=== PATIENT | male | born 1950 | race Caucasian/White ===

== ENCOUNTER 2019-08-27 09:13 | Emergency (ER) | payer MEDICARE, OTHER ==
[2019-08-27 09:58] LABS: BILIRUBIN,URINE NEGATIVE (NEGATIVE); GLUCOSE, URINE (UA) NEGATIVE (NEGATIVE); KETONES,URINE (UA) 15 mg/dL (NEGATIVE); LEUKOCYTE ESTERASE, URINE MODERATE (NEGATIVE); NITRITE,URINE POSITIVE (NEGATIVE); OCCULT BLOOD,URINE LARGE (NEGATIVE); PH,URINE 5.5 PH (5.0-7.5); PROTEIN,URINE 100 mg/dL (NEGATIVE); UROBILINOGEN,URINE 0.2 (NORMAL) E.U./dL (NORMAL)
[2019-08-27 10:05] LABS: CLARITY,URINE HAZY (CLEAR)
[2019-08-27 10:11] LABS: BACTERIA,URINE Few /HPF (None Seen); SQUAMOUS EPITHELIAL CELL,UR RARE Squamous (<= Few)
[2019-08-27 10:12] LABS: BASOPHILS # (AUTO) 0.1 10^3/uL (0.0-0.1); BASOPHILS % (AUTO) 0.4 %; EOSINOPHILS # (AUTO) 0.2 10^3/uL (0.0-0.7); EOSINOPHILS % (AUTO) 1.1 %; HGB - HEMOGLOBIN 15.1 g/dL (14.0-18.0); LYMPHOCYTES % (AUTO) 6.2 %; MEAN CORPUSCULAR HEMOGLOBIN 32.5 pg (27.0-31.0); MEAN CORPUSCULAR HGB CONC 34.2 g/dL (32.0-36.0); MEAN CORPUSCULAR VOLUME 94.8 fL (80.0-94.0); MONOCYTES # (AUTO) 1.5 10^3/uL (0.0-1.0); MONOCYTES % (AUTO) 9.2 %; NEUTROPHILS # (AUTO) 13.5 10^3/uL (1.5-6.6); NEUTROPHILS % (AUTO) 81.9 %; PLT - PLATELET COUNT 137 10^3/uL (130-450); RED BLOOD COUNT 4.65 10^6/uL (4.70-6.10); WHITE BLOOD COUNT 16.5 x10^3/uL (4.8-10.8)
[2019-08-27 10:31] LABS: ALBUMIN 4.4 g/dL (3.2-5.5); ALBUMIN/GLOBULIN RATIO 1.6 (1.0-2.2); CALCIUM 9.2 mg/dL (8.5-10.3); CREATININE 1.4 mg/dL (0.6-1.2); TOTAL PROTEIN 7.2 g/dL (6.7-8.2)
[2019-08-27] MEDS ORDERED: ONDANSETRON 4 MG/2 ML VIAL IVP STA (11:21)
[2019-08-27] MEDS ORDERED: SODIUM CHLORIDE 0.9% 1,000 ML IV ONE (11:21)
[2019-08-27] MEDS ORDERED: PHENAZOPYRIDINE 100 MG TABLET PO STA (11:21)
[2019-08-27] MEDS ORDERED: ACETAMINOPHEN 1,000 MG/100 ML 100 ML IV STA ×2 (11:21→13:26)
[2019-08-27] MEDS ORDERED: cefTRIAXone 1 GM VIAL IVP STA (11:21)
[2019-08-27 13:02] VITALS: BP 135/66
--- NOTE | 2019-08-27 13:07 | ED Physician Documentation ---
PD HPI MALE - Stated complaint Stated Complaint: CHILLS/FEVER - Chief complaint Chief Complaint: Abd Pain - History obtained from History obtained from: Patient - History of Present Illness Timing - onset: How many days ago (2-3) Timing - duration: Days (2-3) Timing - details: Abrupt onset, Still present Associated symptoms: Dysuria, Urinary frequency, Back pain (today). 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 Has not felt improvement yet. Fever, dysuria and frequency continue.) Review of Systems Constitutional: reports: Fever, Chills, Myalgias Nose: denies: Rhinorrhea / runny nose, Congestion Throat: denies: Sore throat Respiratory: denies: Cough GI: reports: Abdominal Pain (suprapubic area), Nausea. denies: Vomiting, Diarrhea : reports: Dysuria, Frequency. denies: Hematuria, Discharge Skin: denies: Rash PD PAST MEDICAL HISTORY - Past Medical History Past Medical History: Yes Cardiovascular: None Endocrine/Autoimmune: None : None Other Past Medical History: Prostatitis - Past Surgical History Past Surgical History: No - Present Medications Home Medications: Ambulatory Orders Medication Instructions Recorded Confirmed Sulfamethox/Trimeth 800/160 1 each PO BID #40 tablet 08/27/19 [Bactrim Ds 800/160] - Allergies Allergies/Adverse Reactions: Allergies Allergy/AdvReac Type Severity Reaction Status Date / Time No Known Drug Allergies Allergy Verified 08/27/19 09:19 - Social History Does the pt smoke?: No Smoking Status: Never smoker Does the pt drink ETOH?: Yes ETOH Use: Wine Does the pt have substance abuse?: No - Immunizations Immunizations: TDAP >10years/unknown PD ED PE NORMAL - Vitals Vital signs reviewed: Yes - General General: Alert and oriented X 3, Well developed/nourished, Other (appears uncomfortable) - Abdomen Abdomen: Normal bowel sounds, Soft, Non distended, No organomegaly, Other (some tneder without guarding in suprapubic area. Mild CVA tenderness bilaterally. ) - Male Male : Deferred - Rectal Rectal: Deferred - Back Back: No CVA TTP - Derm Derm: Normal color Results - Vitals Vitals: Vital Signs - 24 hr 08/27/19 08/27/19 08/27/19 09:19 11:24 13:02 Temperature 38.3 C H 37.7 C H 39.5 C H Heart Rate 116 H 91 99 Respiratory 18 16 20 Rate Blood Pressure 127/72 136/73 H 135/66 H O2 Saturation 98 97 96 Oxygen O2 Source Room air - Labs Labs: Laboratory Tests 08/27/19 08/27/19 08/27/19 09:40 10:07 10:07 WBC 16.5 H RBC 4.65 L Hgb 15.1 Hct 44.1 MCV 94.8 H MCH 32.5 H MCHC 34.2 RDW 12.0 Plt Count 137 MPV 11.0 Neut # (Auto) 13.5 H Lymph # (Auto) 1.0 L [place] # (Auto) 1.5 H Eos # (Auto) 0.2 Baso # (Auto) 0.1 Absolute Nucleated RBC 0.00 Nucleated RBC % 0.0 Sodium 134 L Potassium 4.1 Chloride 101 Carbon Dioxide 21 Anion Gap 12.0 BUN 17 Creatinine 1.4 H Estimated GFR (MDRD) 50 L Glucose 140 H Lactic Acid Calcium 9.2 Total Bilirubin 2.0 H AST 27 ALT 26 Alkaline Phosphatase 44 Total Protein 7.2 Albumin 4.4 Globulin 2.8 Albumin/Globulin Ratio 1.6 Lipase 34 Prostate Specific Ag Urine Color YELLOW Urine Clarity HAZY Urine pH 5.5 Ur Specific [place] >=1.030 H Urine Protein 100 H Urine Glucose (UA) NEGATIVE Urine Ketones 15 H Urine Occult Blood LARGE H Urine Nitrite POSITIVE H Urine Bilirubin NEGATIVE Urine Urobilinogen 0.2 (NORMAL) Ur Leukocyte Esterase MODERATE H Urine RBC 6-10 H Urine WBC >25 H Ur Squamous Epith Cells RARE Squamous Urine Bacteria Few Ur Microscopic Review INDICATED Urine Culture Comments INDICATED 08/27/19 08/27/19 11:23 11:23 WBC RBC Hgb Hct MCV MCH MCHC RDW Plt Count MPV Neut # (Auto) Lymph # (Auto) [place] # (Auto) Eos # (Auto) Baso # (Auto) Absolute Nucleated RBC Nucleated RBC % Sodium Potassium Chloride Carbon Dioxide Anion Gap BUN Creatinine Estimated GFR (MDRD) Glucose Lactic Acid 1.2 Calcium Total Bilirubin AST ALT Alkaline Phosphatase Total Protein Albumin Globulin Albumin/Globulin Ratio Lipase Prostate Specific Ag 34.480 H Urine Color Urine Clarity Urine pH Ur Specific [place] Urine Protein Urine Glucose (UA) Urine Ketones Urine Occult Blood Urine Nitrite Urine Bilirubin Urine Urobilinogen Ur Leukocyte Esterase Urine RBC Urine WBC Ur Squamous Epith Cells Urine Bacteria Ur Microscopic Review Urine Culture Comments PD MEDICAL DECISION MAKING - ED course Complexity details: considered differential (does sound like UTI or prostatitis. He declines Pyridium and initially Tylenol, but then decides on the Tylenol. ), d/w patient Departure - Departure Disposition: 01 Home, Self Care Clinical Impression: Acute prostatitis Condition: Stable Record reviewed to determine appropriate education?: Yes Instructions: ED Prostatitis Prescriptions: Sulfamethox/Trimeth 800/160 [Bactrim Ds 800/160] 1 each PO BID #40 tablet Comments: Bactrim twice daily for 3 weeks. Stay well-hydrated. Tylenol if needed for fevers and pains. You can use phenazopyridine if needed for urinary discomfort. I would anticipate improvement over the next few days with the antibiotics. The culture will result in a couple of days and will call you if we need to modify the antibiotics. Return if worsening. Discharge Date/Time: 08/27/19 13:49
[2019-08-27] MEDS ORDERED: ACETAMINOPHEN 325 MG TABLET PO STA (13:34)
== END 2019-08-27 13:49 | disposition home or self-care (01) ==
LOC: ED 09:13
DX: N41.0 Acute prostatitis (principal)
CPT/HCPCS: 36415; 80053; 81001; 83605; 83690; 84153; 85025; 87086; 87181; 96361; 96374; 99283; 99284; A9270; 81003

== ENCOUNTER 2019-10-10 11:44 | Outpatient (CLI) | payer MEDICARE, OTHER | END 2019-10-10 11:45 | disposition home or self-care (01) | LOC: COV 11:44 | PROVIDERS: ATTEND Family Medicine | DX: R05 Cough (principal); R50.9 Fever, unspecified | CPT/HCPCS: 81599; U0002 ==

== ENCOUNTER 2021-04-22 16:47 | Outpatient (CLI) | payer MEDICARE, OTHER | END 2021-04-22 16:48 | disposition home or self-care (01) | LOC: COV 16:47 | PROVIDERS: ATTEND Family Medicine | DX: Z01.812 Encounter for preprocedural laboratory examination (principal); Z86.19 Personal history of other infectious and parasitic diseases; Z20.822 Contact with and (suspected) exposure to COVID-19 ==

== ENCOUNTER 2021-04-24 13:39 | Outpatient (CLI) | payer MEDICARE, OTHER ==
--- NOTE | 2021-04-24 16:08 | XRAY Report ---
PROCEDURE: Chest 2 View X-Ray INDICATIONS: PNEUMONIA TECHNIQUE: 2 view(s) of the chest. COMPARISON: None. FINDINGS: Surgical changes and devices: None. Lungs and pleura: No pleural effusions or pneumothorax. Lungs are clear. Mediastinum: Mediastinal contours are normal. Heart size is normal. Bones and chest wall: No suspicious bony abnormalities. Soft tissues appear unremarkable. IMPRESSION: No acute cardiopulmonary disease process. Reviewed by: Maryam Barnett MD, PhD on 04/24/2021 4:07 PM PDT Approved by: Maryam Barnett MD, PhD on 04/24/2021 4:07 PM PDT Station ID: [id number]
== END 2021-04-24 13:40 | disposition home or self-care (01) ==
LOC: DI 13:39
PROVIDERS: ATTEND Family Medicine
DX: J18.9 Pneumonia, unspecified organism (principal)

== ENCOUNTER 2021-07-18 17:49 | Emergency (ER) | payer MEDICARE, OTHER ==
--- NOTE | 2021-07-18 18:17 | ED Physician Documentation ---
PD HPI DYSPNEA - Stated complaint Stated Complaint: SOA,FEVER - Chief complaint Chief Complaint: Resp - History obtained from History obtained from: Patient - Additional information Additional information: Healthy 70-year-old gentleman has had trouble with reactive airways disease since being exposed to wood smoke a few months ago and had an increasing dry cough a couple of weeks ago and finished a Z-Yordan last week. Now more acutely over the last 2 days have developed productive cough with feeling of stuck phlegm in the left side of the chest with a low-grade fever and shortness of breath. He has been taking albuterol at home. Declines albuterol here and declines anything for the cough. He has not been vaccinated against Covid but took a home test which was negative. Review of Systems Ten Systems: 10 systems reviewed and negative Constitutional: reports: Fever, Fatigue Nose: reports: Rhinorrhea / runny nose Throat: reports: Sore throat Cardiac: denies: Chest pain / pressure, Palpitations Respiratory: reports: Dyspnea, Cough PD PAST MEDICAL HISTORY - Past Medical History Cardiovascular: None Endocrine/Autoimmune: None : None - Past Surgical History Past Surgical History: No - Present Medications Home Medications: Ambulatory Orders Medication Instructions Recorded Confirmed Sulfamethox/Trimeth 800/160 1 each PO BID #40 tablet 08/27/19 [Bactrim Ds 800/160] predniSONE [Deltasone] 20 mg PO [id number] #21 tab 07/18/21 - Allergies Allergies/Adverse Reactions: Allergies Allergy/AdvReac Type Severity Reaction Status Date / Time No Known Drug Allergies Allergy Verified 07/18/21 17:58 - Social History Does the pt smoke?: No Smoking Status: Never smoker Does the pt drink ETOH?: Yes Does the pt have substance abuse?: No - Immunizations Immunizations: TDAP >10years/unknown PD ED PE NORMAL - Vitals Vital signs reviewed: Yes - General General: Alert and oriented X 3, Other (Quite frequent bronchitic coughing, nonlabored breathing when he is not coughing) - Cardiac Cardiac: RRR, No murmur - Respiratory Respiratory: No respiratory distress, Other (Wheezy and rhonchorous throughout and diminished at the left base) - Abdomen Abdomen: Normal bowel sounds, Soft, Non tender - Back Back: No CVA TTP, No spinal TTP - Derm Derm: Normal color, Warm and dry - Extremities Extremities: No edema, No calf tenderness / cord - Neuro Neuro: Alert and oriented X 3, Normal speech Results - Vitals Vitals: Vital Signs - 24 hr 07/18/21 07/18/21 17:52 19:00 Temperature 36.5 C Heart Rate 90 78 Respiratory 18 18 Rate Blood Pressure 153/93 H O2 Saturation 97 Oxygen O2 Source Room air - Labs Labs: Laboratory Tests 07/18/21 07/18/21 19:05 19:05 WBC 7.3 RBC 4.60 L Hgb 14.9 Hct 43.7 MCV 95.0 H MCH 32.4 H MCHC 34.1 RDW 12.3 Plt Count 180 MPV 10.5 Neut # (Auto) 3.8 Lymph # (Auto) 2.1 [place] # (Auto) 0.8 Eos # (Auto) 0.7 Baso # (Auto) 0.1 Absolute Nucleated RBC 0.00 Nucleated RBC % 0.0 Sodium 138 Potassium 3.8 Chloride 103 Carbon Dioxide 26 Anion Gap 9.0 BUN 21 H Creatinine 1.0 Estimated GFR (MDRD) 74 L Glucose 107 H Calcium 9.4 PD MEDICAL DECISION MAKING - ED course ED course: 70-year-old gentleman with what sounds like wheezy bronchitis, chest x-ray is clear. Covid test pending but unlikely given negative home Covid testing and lack of lymphopenia. Blood work is relatively unremarkable. He declined a trial of antibiotics which is not unreasonable given the lack of findings of bacterial infection. Departure - Departure Disposition: 01 Home, Self Care Clinical Impression: Bronchitis Condition: Good Record reviewed to determine appropriate education?: Yes Instructions: ED Bronchitis Asthmatic Prescriptions: predniSONE [Deltasone] 20 mg PO [id number] #21 tab Comments: You were seen today for wheezy bronchitis, as discussed your chest x-ray is clear. You can try the prednisone taper and see if that helps. Return for new or worsening symptoms. You have a Covid test pending. You need to self quarantine until the result is done and negative. Do not leave your house. Do not get near anybody. The results should be done in 48 to 72 hours. We will call with a positive result, the fastest way to get a negative result for confirmation though is to go to the hospital website at [email or web address], click on the my [facility] tab and sign up for the patient portal. If any friends or family get sick and would like to have a Covid test done, but do not have signs or symptoms that would necessitate being hospitalized, there are multiple local options for Covid testing. [facility] keeps an updated list of testing and vaccination options at: [email or web address].
--- NOTE | 2021-07-18 18:38 | XRAY Report ---
PROCEDURE: Chest 1 View X-Ray INDICATIONS: Cough TECHNIQUE: One view of the chest was acquired. COMPARISON: 04/24/2021 chest radiographs FINDINGS: Surgical changes and devices: None. Lungs and pleura: No pleural effusions or pneumothorax. Lungs are clear. Mediastinum: Mediastinal contours appear normal. Heart size is normal. Bones and chest wall: No suspicious bony lesions. Overlying soft tissues appear unremarkable. IMPRESSION: No acute cardiopulmonary process demonstrated radiographically. Reviewed by: Jameson Mendoza MD on 07/18/2021 6:37 PM PST Approved by: Jameson Mendoza MD on 07/18/2021 6:37 PM [facility] Station ID: [id number]
[2021-07-18] MEDS ORDERED: ALBUTEROL 1 PUFF INH STA (18:44)
[2021-07-18 19:10] LABS: BASOPHILS # (AUTO) 0.1 10^3/uL (0.0-0.1); EOSINOPHILS # (AUTO) 0.7 10^3/uL (0.0-0.7); EOSINOPHILS % (AUTO) 9.1 %; HCT - HEMATOCRIT 43.7 % (42.0-52.0); HGB - HEMOGLOBIN 14.9 g/dL (14.0-18.0); LYMPHOCYTES # (AUTO) 2.1 10^3/uL (1.5-3.5); LYMPHOCYTES % (AUTO) 27.9 %; MEAN CORPUSCULAR HEMOGLOBIN 32.4 pg (27.0-31.0); MEAN CORPUSCULAR HGB CONC 34.1 g/dL (32.0-36.0); MEAN PLATELET VOLUME 10.5 fL (7.4-11.4); MONOCYTES # (AUTO) 0.8 10^3/uL (0.0-1.0); MONOCYTES % (AUTO) 10.6 %; NEUTROPHILS # (AUTO) 3.8 10^3/uL (1.5-6.6); NEUTROPHILS % (AUTO) 51.1 %; PLT - PLATELET COUNT 180 10^3/uL (130-450); RED CELL DISTRIBUTION WIDTH 12.3 % (12.0-15.0); WHITE BLOOD COUNT 7.3 x10^3/uL (4.8-10.8)
[2021-07-18 19:19] LABS: CALCIUM 9.4 mg/dL (8.5-10.3); POTASSIUM 3.8 mmol/L (3.5-5.0)
[2021-07-18 19:49] VITALS: BP 136/99
== END 2021-07-18 19:49 | disposition home or self-care (01) ==
LOC: ED 17:49
DX: J40 Bronchitis, not specified as acute or chronic (principal); Z20.822 Contact with and (suspected) exposure to COVID-19
CPT/HCPCS: 36415; 71045; 80048; 85025; 94640; 94664; 99283; 99284; U0004

== ENCOUNTER 2021-07-24 08:00 | Outpatient (CLI) | payer MEDICARE, OTHER ==
[2021-07-24 20:10] LABS: BILIRUBIN,URINE NEGATIVE (NEGATIVE); GLUCOSE, URINE (UA) NEGATIVE (NEGATIVE); KETONES,URINE (UA) NEGATIVE (NEGATIVE); LEUKOCYTE ESTERASE, URINE MODERATE (NEGATIVE); NITRITE,URINE POSITIVE (NEGATIVE); OCCULT BLOOD,URINE LARGE (NEGATIVE); PROTEIN,URINE 100 mg/dL (NEGATIVE); UROBILINOGEN,URINE 0.2 (NORMAL) E.U./dL (NORMAL)
[2021-07-24 20:31] LABS: CLARITY,URINE CLOUDY (CLEAR)
[2021-07-24 20:37] LABS: BACTERIA,URINE Few /HPF (None Seen); RBC,URINE TNTC /HPF (0-5); SQUAMOUS EPITHELIAL CELL,UR NONE SEEN (<= Few); WBC,URINE >25 /HPF (0-3)
== END 2021-07-24 23:59 ==
LOC: LAB.S 08:00
PROVIDERS: ATTEND Physician Assistant Medical
DX: R30.0 Dysuria (principal); R31.0 Gross hematuria
CPT/HCPCS: 81001; 87086; 87181

== ENCOUNTER 2021-08-16 08:34 | Outpatient (CLI) | payer MEDICARE, OTHER | END 2021-08-16 08:35 | disposition EMS.NT | LOC: EMS 08:34 | DX: I48.91 Unspecified atrial fibrillation (principal) ==

== ENCOUNTER 2021-08-16 10:40 | Outpatient (CLI) | payer MEDICARE, OTHER | END 2021-08-16 10:41 | disposition critical access hospital (66) | LOC: EMS 10:40 | DX: R07.9 Chest pain, unspecified (principal) | CPT/HCPCS: A0425; A0429 ==

== ENCOUNTER 2021-08-16 11:23 | Emergency (ER) | payer MEDICARE, OTHER ==
--- NOTE | 2021-08-16 12:12 | XRAY Report ---
PROCEDURE: Chest 1 View X-Ray INDICATIONS: Chest pain TECHNIQUE: One view of the chest was acquired. COMPARISON: 07/18/2021. FINDINGS: Surgical changes and devices: None. Lungs and pleura: No pleural effusions or pneumothorax. Patchy opacities in the lung bases bilateral ly. Mediastinum: Mediastinal contours appear normal. Heart size is normal. Bones and chest wall: No suspicious bony lesions. Overlying soft tissues appear unremarkable. IMPRESSION: Small patchy opacities in the lung bases bilaterally, right greater than left which could represent a telectasis or pneumonia. Reviewed by: Maryam Barnett MD, PhD on 08/16/2021 11:10 AM [facility] Approved by: Maryam Barnett MD, PhD on 08/16/2021 11:10 AM [facility] Station ID: [id number]
--- NOTE | 2021-08-16 12:19 | ED Physician Documentation ---
History of Present Illness - Stated complaint Stated Complaint: AFIB/C+ - Chief complaint Chief Complaint: Cardiac - Additonal information Additional information: 70-year-old male presents emergency department for evaluation of palpitations that he believes is new onset atrial fibrillation. The patient tested positive for COVID about 10 days ago. Intermittently through the last week he has been having fevers but reports that he is steadily improved, though last night had a fever of 102. Very mild non productive cough. He was feeling improved until this morning when he developed the palpitations at rest. He is denying any chest pain or shortness of air. Does not feel dizzy or lightheaded. No previous history of known A. fib, coronary artery disease, heart attack or strokes. 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 Patient is not yet vaccinated for COVID-19 due to personal choice. He denies any pertinent past medical history, no history of diabetes tobacco use smoking or pulmonary disorders. He has tried vagal maneuvers at home without success. He arrives here appearing very well room air saturations at 99% noted atrial fib with a rate in the 70s. Review of Systems Constitutional: reports: Fever, Myalgias, Fatigue. denies: Chills Eyes: reports: Reviewed and negative Ears: reports: Reviewed and negative Nose: reports: Reviewed and negative Throat: reports: Reviewed and negative Cardiac: reports: Palpitations. denies: Chest pain / pressure, Pedal edema, Calf pain Respiratory: denies: Dyspnea, Cough GI: denies: Abdominal Pain, Nausea, Vomiting : reports: Reviewed and negative Skin: reports: Reviewed and negative PD PAST MEDICAL HISTORY - Past Medical History Cardiovascular: Atrial fibrillation Endocrine/Autoimmune: None : None - Past Surgical History Past Surgical History: No - Present Medications Home Medications: Ambulatory Orders Medication Instructions Recorded Confirmed Sulfamethox/Trimeth 800/160 1 each PO BID #40 tablet 08/27/19 [Bactrim Ds 800/160] predniSONE [Deltasone] 20 mg PO [id number] #21 tab 07/18/21 Amox/Clav 875/125 [Augmentin] 1 each PO Q12H #14 tablet 08/16/21 Azithromycin [Zithromax] 0 mg PO DAILY #6 tablet 08/16/21 - Allergies Allergies/Adverse Reactions: Allergies Allergy/AdvReac Type Severity Reaction Status Date / Time No Known Drug Allergies Allergy Verified 08/16/21 11:45 - Social History Does the pt smoke?: No Smoking Status: Never smoker Does the pt drink ETOH?: Yes Does the pt have substance abuse?: No - Immunizations Immunizations: TDAP >10years/unknown PD ED PE NORMAL - General General: Alert and oriented X 3, No acute distress, Well developed/nourished - HEENT HEENT: Atraumatic, Moist mucous membranes, Pharynx benign - Neck Neck: Supple, no meningeal sign - Cardiac Cardiac: No murmur. No: RRR (irregular) - Respiratory Respiratory: No respiratory distress, Clear bilaterally - Abdomen Abdomen: Normal bowel sounds, Soft - Back Back: No CVA TTP, No spinal TTP - Derm Derm: Normal color, Warm and dry, No rash - Neuro Neuro: Alert and oriented X 3, field spec 2-12 intact Eye Opening: Spontaneous Motor: Obeys Commands Verbal: Oriented GCS Score: 15 Results - Vitals Vitals: Vital Signs - 24 hr 08/16/21 08/16/21 11:37 12:15 Temperature 36.6 C Heart Rate 86 85 Respiratory 12 14 Rate Blood Pressure 113/73 131/79 H O2 Saturation 98 98 Oxygen O2 Source Room air - Labs Labs: Laboratory Tests 08/16/21 08/16/21 08/16/21 12:06 12:06 12:06 WBC 2.9 L RBC 4.70 Hgb 15.0 Hct 43.4 MCV 92.3 MCH 31.9 H MCHC 34.6 RDW 11.9 L Plt Count 106 L MPV 10.9 Manual Slide Review Indicated Sodium 134 L Potassium 3.6 Chloride 98 L Carbon Dioxide 25 Anion Gap 11.0 BUN 14 Creatinine 0.9 Estimated GFR (MDRD) 83 L Glucose 106 H Calcium 8.7 Total Bilirubin 0.2 AST 67 H ALT 44 Alkaline Phosphatase 55 Troponin I High Sens 8.9 B-Natriuretic Peptide Total Protein 6.4 L Albumin 3.8 Globulin 2.6 Albumin/Globulin Ratio 1.5 Lipase 91 H 08/16/21 12:06 WBC RBC Hgb Hct MCV MCH MCHC RDW Plt Count MPV Manual Slide Review Sodium Potassium Chloride Carbon Dioxide Anion Gap BUN Creatinine Estimated GFR (MDRD) Glucose Calcium Total Bilirubin AST ALT Alkaline Phosphatase Troponin I High Sens B-Natriuretic Peptide 24 Total Protein Albumin Globulin Albumin/Globulin Ratio Lipase - Rads (name of study) CXR Radiology: Final report received (Small patchy opacities in the left lung bases bilaterally right greater than left which could represent atelectasis or pneumonia) PD MEDICAL DECISION MAKING - ED course Complexity details: reviewed results, re-evaluated patient, considered differential, d/w patient ED course: 70-year-old male who denies any pertinent past medical history with the exception of recently diagnosed reactive airway disease secondary to and all of oil allergy presents the emergency department for recurrent fevers over the last week as well as new onset palpitations that began this AM. He was diagnosed with COVID about 1 week ago. Last temperature 102 yesterday evening. He denies however that he has a productive cough. On presentation he is noted to be in a rate controlled atrial fib. Rate is about 80. However the EKG is nonischemic. Patient denies chest pain or shortness of air. His normotensive without hypoxia. Screening labs do show a leukopenia which is consistent with a history of COVID infection. High-sensitivity troponin and BNP are not elevated. Chest x-ray suggest a subtle pneumonia in both of his lower lung bases. This pneumonia is likely the cause of the new onset atrial fibrillation. His [id number] score is 0. Making him low risk for stroke therefore we will defer initiation of anticoagulation. This finding was discussed with the patient. He will be started on azithromycin and Augmentin for treatment of the pneumonia. Advised close follow-up with his primary care doctor for cardiology referral. Return precautions were discussed for failure symptoms to improve, a rapid heart rate, fainting worsening fevers or the development of chest pain. Departure - Departure Disposition: 01 Home, Self Care Clinical Impression: COVID-19 Pneumonia Qualifiers: Pneumonia type: due to unspecified organism Laterality: bilateral Lung location: lower lobe of lung Qualified Code(s): J18.9 - Pneumonia, unspecified organism Atrial fibrillation Qualifiers: Atrial fibrillation type: unspecified Qualified Code(s): I48.91 - Unspecified atrial fibrillation Condition: Stable Record reviewed to determine appropriate education?: Yes Instructions: Atrial Fibrillation Dc Prescriptions: Amox/Clav 875/125 [Augmentin] 1 each PO Q12H #14 tablet Azithromycin [Zithromax] 0 mg PO DAILY #6 tablet Comments: Izaiah edgar were seen today in the emergency department for palpitations. You recently tested positive for COVID-19 and you have been having intermittent fevers for about 1 week. Your EKG does show a rate controlled atrial fibrillation. Chest x-ray shows a very mild pneumonia in both of your lower lungs. This is likely due to the recent COVID infection and is most likely the cause of your recurrent fevers as well as probably the atrial fibrillation. Based on your health history you are at low risk for a stroke, therefore we do not need to start longer-term anticoagulation. However you should discuss this ED visit with your primary care doctor. You would benefit from an outpatient referral to a occupational health nurse supervisor for echocardiogram and/or stress test. Please fill the prescription for the antibiotics at the [facility] in [place]. With the antibiotics I would expect reduced fevers over the next few days. If at any point you find that you are severely short of air, the fevers do not improve or you have a resting heart rate greater than 120 or develop any chest pain then please return immediately to the emergency department.
[2021-08-16 12:20] LABS: BASOPHILS % (AUTO) 0.3 %; HCT - HEMATOCRIT 43.4 % (42.0-52.0); LYMPHOCYTES # (AUTO) 1.1 10^3/uL (1.5-3.5); LYMPHOCYTES % (AUTO) 37.2 %; MEAN CORPUSCULAR HEMOGLOBIN 31.9 pg (27.0-31.0); MEAN CORPUSCULAR HGB CONC 34.6 g/dL (32.0-36.0); MEAN CORPUSCULAR VOLUME 92.3 fL (80.0-94.0); MEAN PLATELET VOLUME 10.9 fL (7.4-11.4); MONOCYTES # (AUTO) 0.3 10^3/uL (0.0-1.0); MONOCYTES % (AUTO) 10.7 %; NEUTROPHILS # (AUTO) 1.5 10^3/uL (1.5-6.6); NEUTROPHILS % (AUTO) 51.1 %; PLT - PLATELET COUNT 106 10^3/uL (130-450); RED CELL DISTRIBUTION WIDTH 11.9 % (12.0-15.0); WHITE BLOOD COUNT 2.9 x10^3/uL (4.8-10.8)
[2021-08-16 12:23] LABS: ALBUMIN 3.8 g/dL (3.2-5.5); ALBUMIN/GLOBULIN RATIO 1.5 (1.0-2.2); BILIRUBIN,TOTAL 0.2 mg/dL (0.2-1.0); CALCIUM 8.7 mg/dL (8.5-10.3); CREATININE 0.9 mg/dL (0.6-1.2); POTASSIUM 3.6 mmol/L (3.5-5.0); TOTAL PROTEIN 6.4 g/dL (6.7-8.2)
[2021-08-16 12:33] LABS: SLIDE REVIEW? Indicated
[2021-08-16 13:10] LABS: PLATELET ESTIMATE, MANUAL DECREASED (<130,000) (NORMAL); PLATELET MORPHOLOGY NORMAL APPEARANCE (NORMAL); RBC MORPHOLOGY (MULTIPLE) NORMAL APPEARANCE (NORMAL); WBC MORPHOLOGY (MULTIPLE) NORMAL APPEARANCE (NORMAL)
[2021-08-16 13:38] VITALS: BP 124/78
== END 2021-08-16 13:37 | disposition home or self-care (01) ==
LOC: EDUNIT# → ED 11:23
DX: U07.1 COVID-19 (principal); I48.91 Unspecified atrial fibrillation; J18.9 Pneumonia, unspecified organism
CPT/HCPCS: 36415; 80053; 83690; 83880; 84484; 85025; 93005; 99284

== ENCOUNTER 2021-09-11 08:00 | Outpatient (CLI) | payer MEDICARE, OTHER ==
[2021-09-11 16:01] LABS: ALBUMIN 3.5 g/dL (3.2-5.5); BILIRUBIN,TOTAL 0.6 mg/dL (0.2-1.0); CALCIUM 9.4 mg/dL (8.5-10.3); CREATININE 0.8 mg/dL (0.6-1.2)
[2021-09-11 16:04] LABS: CREATINE KINASE MB 1.2 ng/mL (0.6-6.3)
[2021-09-11 16:06] LABS: TROPONIN I HIGH SENSITIVITY 2.8 ng/L (2.3-19.7)
[2021-09-11 16:17] LABS: BASOPHILS % (AUTO) 0.4 %; HCT - HEMATOCRIT 40.9 % (42.0-52.0); HGB - HEMOGLOBIN 13.1 g/dL (14.0-18.0); LYMPHOCYTES # (AUTO) 1.6 10^3/uL (1.5-3.5); LYMPHOCYTES % (AUTO) 19.5 %; MEAN CORPUSCULAR HEMOGLOBIN 31.3 pg (27.0-31.0); MEAN CORPUSCULAR VOLUME 97.8 fL (80.0-94.0); MEAN PLATELET VOLUME 11.4 fL (7.4-11.4); MONOCYTES # (AUTO) 0.9 10^3/uL (0.0-1.0); MONOCYTES % (AUTO) 10.9 %; NEUTROPHILS # (AUTO) 5.5 10^3/uL (1.5-6.6); NEUTROPHILS % (AUTO) 68.7 %; PLT - PLATELET COUNT 212 10^3/uL (130-450); RED BLOOD COUNT 4.18 10^6/uL (4.70-6.10); RED CELL DISTRIBUTION WIDTH 13.6 % (12.0-15.0)
== END 2021-09-11 23:59 ==
LOC: LAB.S 08:00
PROVIDERS: ATTEND Physician Assistant Medical
DX: I30.1 Infective pericarditis (principal)
CPT/HCPCS: 36415; 80053; 82553; 84484; 85025

== ENCOUNTER 2021-11-03 08:00 | Outpatient (CLI) | payer MEDICARE, OTHER ==
--- NOTE | 2021-11-03 13:29 | XRAY Report ---
PROCEDURE: Chest 2 View X-Ray INDICATIONS: PERICARDITIS TECHNIQUE: 2 view(s) of the chest. COMPARISON: 08/16/2021, 07/18/2021, 04/24/2021. FINDINGS: Surgical changes and devices: None. Lungs and pleura: An incomplete inspiratory result is noted, with low lung volumes and crowding of t he vascular markings. No focal infiltrates are seen. The previously seen bilateral infiltrates have r esolved. No large pneumothorax or large pleural effusion can be seen. Mediastinum: Mediastinal contours are normal. Heart size is normal. Bones and chest wall: No suspicious bony abnormalities. Soft tissues appear unremarkable. IMPRESSION: The cardiac silhouette is not enlarged. Clear lungs. Reviewed by: Triston Mendez MD on 11/03/2021 12:28 PM [facility] Approved by: Triston Mendez MD on 11/03/2021 12:28 PM [facility] Station ID: [id number]
== END 2021-11-03 23:59 | disposition home or self-care (01) ==
LOC: DI.S 08:00
PROVIDERS: ATTEND Emergency Medicine
DX: I30.1 Infective pericarditis (principal)

== ENCOUNTER 2022-04-12 08:00 | Outpatient (CLI) | payer MEDICARE, OTHER ==
--- NOTE | 2022-04-12 10:24 | XRAY Report ---
PROCEDURE: Chest 2 View X-Ray INDICATIONS: REACTIVE AIRWAY DISEASE TECHNIQUE: 2 view(s) of the chest. COMPARISON: None. FINDINGS: Surgical changes and devices: None Lungs and pleura: No pleural effusions or pneumothorax. Lungs are clear other than mild left basila r atelectasis. Mediastinum: Mediastinal contours are normal. Heart size is normal. Bones and chest wall: No suspicious bony abnormalities. Soft tissues appear unremarkable. IMPRESSION: No acute cardiopulmonary findings Reviewed by: Cecil Sen MD on 04/12/2022 9:23 AM [facility] Approved by: Cecil Sen MD on 04/12/2022 9:23 AM [facility] Station ID: [id number]
== END 2022-04-12 23:59 | disposition home or self-care (01) ==
LOC: DI.S 08:00
PROVIDERS: ATTEND Physician Assistant
DX: J45.909 Unspecified asthma, uncomplicated (principal)

== ENCOUNTER 2022-04-14 12:36 | Outpatient (CLI) | payer MEDICARE, OTHER ==
[2022-04-14 20:08] LABS: HCT - HEMATOCRIT 44.3 % (42.0-52.0); MEAN CORPUSCULAR HEMOGLOBIN 32.7 pg (27.0-31.0); MEAN CORPUSCULAR HGB CONC 33.9 g/dL (32.0-36.0); MEAN CORPUSCULAR VOLUME 96.5 fL (80.0-94.0); MEAN PLATELET VOLUME 11.3 fL (7.4-11.4); RED BLOOD COUNT 4.59 10^6/uL (4.70-6.10); RED CELL DISTRIBUTION WIDTH 12.8 % (12.0-15.0); WHITE BLOOD COUNT 9.2 x10^3/uL (4.8-10.8)
[2022-04-14 20:26] LABS: TROPONIN I HIGH SENSITIVITY 2.9 ng/L (2.3-19.7)
[2022-04-14 20:29] LABS: CALCIUM 9.7 mg/dL (8.5-10.3); CRP - C-REACTIVE PROTEIN 1.3 mg/dL (0-1.0); MAGNESIUM 2.3 mg/dL (1.7-2.8); POTASSIUM 4.2 mmol/L (3.5-5.0)
== END 2022-04-14 12:37 | disposition home or self-care (01) ==
LOC: LAB.S 12:36
PROVIDERS: ATTEND Physician Assistant
DX: J45.901 Unspecified asthma with (acute) exacerbation (principal); R07.9 Chest pain, unspecified; Z86.16 Personal history of COVID-19; Z86.79 Personal history of other diseases of the circulatory system; Z87.01 Personal history of pneumonia (recurrent); Z92.29 Personal history of other drug therapy
CPT/HCPCS: 36415; 80048; 82553; 83735; 83880; 84484; 85027; 85379; 85651; 86140

== ENCOUNTER 2022-06-27 08:00 | Outpatient (CLI) | payer MEDICARE, OTHER ==
--- NOTE | 2022-06-27 15:21 | XRAY Report ---
PROCEDURE: Chest 2 View X-Ray INDICATIONS: INFLUENZA A TECHNIQUE: 2 views of the chest were acquired. COMPARISON: 04/12/2022 and 11/03/2021. FINDINGS: Surgical changes and devices: None. Lungs and pleura: No pleural effusions or pneumothorax. Increased bronchovascular markings in bilate ral hilar region are seen. No definite focal infiltrate. Mediastinum: Mediastinal contours are normal. Heart size is normal. Bones and chest wall: No suspicious bony abnormalities. Soft tissues appear unremarkable. IMPRESSION: Finding is suggestive of mild reactive airway disease such as bronchitis or asthma. No definite focal infiltrate, pleural effusion or pneumothorax. Reviewed by: Hua Roberts MD on 06/27/2022 3:19 PM PST Approved by: Hua Roberts MD on 06/27/2022 3:19 PM PST Station ID: [id number]
[2022-06-27 22:08] LABS: INFLUENZA A H1 2009- RESP PCR DETECTED; INFLUENZA B - RESP PCR PANEL NOT DETECTED; RSV- RESP PCR PANEL NOT DETECTED; SARS-CoV-2 -RESP PCR PANEL NOT DETECTED
== END 2022-06-27 23:59 | disposition home or self-care (01) ==
LOC: DI.S 08:00
PROVIDERS: ATTEND Emergency Medicine
DX: J34.89 Other specified disorders of nose and nasal sinuses (principal); J09.X2 Influenza due to identified novel influenza A virus with other respiratory manifestations; R05.1 Acute cough; Z20.822 Contact with and (suspected) exposure to COVID-19
CPT/HCPCS: 87637

== ENCOUNTER 2023-03-05 18:26 | Outpatient (CLI) | payer OTHER, MEDICARE | END 2023-03-05 23:59 | disposition left against medical advice (07) | LOC: EMS 18:26 | DX: R07.81 Pleurodynia (principal); R07.89 Other chest pain; V49.40XA Driver injured in collision with unspecified motor vehicles in traffic accident, initial encounter; Y92.414 Local residential or business street as the place of occurrence of the external cause ==

== ENCOUNTER 2023-03-05 19:42 | Emergency (ER) | payer OTHER, MEDICARE ==
[2023-03-05 20:04] VITALS: BP 147/75; O2SAT 96
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
== END 2023-03-05 21:34 | disposition home or self-care (01) ==
LOC: ED 19:42
DX: S22.32XA Fracture of one rib, left side, initial encounter for closed fracture (principal); V49.40XA Driver injured in collision with unspecified motor vehicles in traffic accident, initial encounter; I48.91 Unspecified atrial fibrillation
CPT/HCPCS: 80053; 80320; 83690; 85025; 85610; 85730; 86850; 86900; 86901; 99283; 99284

== ENCOUNTER 2023-03-12 12:14 | Outpatient (CLI) | payer MEDICARE, OTHER ==
--- NOTE | 2023-03-12 12:33 | XRAY Report ---
PROCEDURE: Ribs w/PA Chest LT INDICATIONS: LEFT SIDED RIB PAIN TECHNIQUE: 3 views of the left ribs were acquired, along with a single view chest. COMPARISON: X-ray left RIBS 03/05/2023. FINDINGS: Surgical changes and devices: None. Bones and chest wall: Redemonstration of mildly displaced left seventh rib fracture anteriorly.. No suspicious bony lesions. Overlying soft tissues appear unremarkable. Lungs and pleura: No pleural effusions or pneumothorax. Lungs appear clear. Mediastinum: Mediastinal contours appear normal. Heart size is normal. IMPRESSION: Redemonstration of mildly displaced left anterior seventh rib fracture. Reviewed by: Mark Peres MD on 03/12/2023 12:32 PM PDT Approved by: Mark Peres MD on 03/12/2023 12:32 PM PDT Station ID: [id number]
== END 2023-03-12 23:59 | disposition home or self-care (01) ==
LOC: DI.S 12:14
PROVIDERS: ATTEND Physician Assistant Medical
DX: S22.32XD Fracture of one rib, left side, subsequent encounter for fracture with routine healing (principal)

== ENCOUNTER 2023-04-29 14:46 | Outpatient (CLI) | payer MEDICARE, OTHER ==
--- NOTE | 2023-04-29 15:29 | XRAY Report ---
PROCEDURE: Ribs w/PA Chest LT INDICATIONS: LEFT SIDED RIB PAIN TECHNIQUE: 2 views of the left ribs were acquired, along with a single view chest. COMPARISON: None. FINDINGS: Surgical changes and devices: None. Bones and chest wall: No fractures or dislocations. No suspicious bony lesions. Overlying soft tis sues appear unremarkable. Lungs and pleura: No pleural effusions or pneumothorax. Lungs appear clear. Mediastinum: Mediastinal contours appear normal. Heart size is normal. IMPRESSION: No displaced rib fracture or pneumothorax. Reviewed by: Mark Peres MD on 04/29/2023 3:27 PM PDT Approved by: Mark Peres MD on 04/29/2023 3:27 PM PDT Station ID: [id number]
== END 2023-04-29 23:59 | disposition home or self-care (01) ==
LOC: DI.S 14:46
PROVIDERS: ATTEND Physician Assistant Medical
DX: R07.81 Pleurodynia (principal)

== ENCOUNTER 2023-10-01 08:00 | Outpatient (CLI) | payer MEDICARE, OTHER ==
--- NOTE | 2023-10-01 16:52 | XRAY Report ---
PROCEDURE: Chest 2V INDICATIONS: COUGH/DYSPNEA ON EXERTION TECHNIQUE: 2 views of the chest were acquired. COMPARISON: Chest x-ray 04/29/2023 FINDINGS: Surgical changes and devices: None. Lungs and pleura: No pleural effusions or pneumothorax. Lungs are clear. Mediastinum: Mediastinal contours appear normal. Heart size is normal. Bones and chest wall: No suspicious bony lesions. Overlying soft tissues appear unremarkable. IMPRESSION: No acute cardiopulmonary process. Reviewed by: Mel Camara MD on 10/01/2023 4:50 PM [facility] Approved by: Mel Camara MD on 10/01/2023 4:50 PM [facility] Station ID: [id number]
== END 2023-10-01 23:59 | disposition home or self-care (01) ==
LOC: DI.S 08:00
PROVIDERS: ATTEND Registered Nurse
DX: R05.1 Acute cough (principal); R06.09 Other forms of dyspnea

== ENCOUNTER 2023-10-07 15:00 | Outpatient (CLI) | payer MEDICARE, OTHER ==
[2023-10-07 20:08] LABS: ALBUMIN 4.5 g/dL (3.2-5.5); ALBUMIN/GLOBULIN RATIO 2.1 (1.0-2.2); ALKALINE PHOSPHATASE 54 IU/L (42-121); ALT ALANINE AMINOTRANSFERASE 21 IU/L (10-60); AST ASPARTATE AMINOTRANSFERASE 22 IU/L (10-42); BILIRUBIN,TOTAL 0.5 mg/dL (0.2-1.0); BUN - BLOOD UREA NITROGEN 21 mg/dL (6-20); CALCIUM 9.8 mg/dL (8.5-10.3); CARBON DIOXIDE - CO2 29 mmol/L (21-32); CHLORIDE 104 mmol/L (101-111); CRP - C-REACTIVE PROTEIN < 0.5 mg/dL (<0.5); GFR - MDRD 73 (>89); GLUCOSE 96 mg/dL (74-104); POTASSIUM 4.4 mmol/L (3.5-4.5); SODIUM 139 mmol/L (135-145); TOTAL PROTEIN 6.6 g/dL (6.4-8.9)
[2023-10-07 20:09] LABS: BASOPHILS # (AUTO) 0.1 10^3/uL (0.0-0.1); BASOPHILS % (AUTO) 1.1 %; EOSINOPHILS # (AUTO) 0.1 10^3/uL (0.0-0.7); EOSINOPHILS % (AUTO) 1.4 %; HCT - HEMATOCRIT 42.4 % (42.0-52.0); HGB - HEMOGLOBIN 14.8 g/dL (14.0-18.0); LYMPHOCYTES # (AUTO) 2.5 10^3/uL (1.5-3.5); MEAN CORPUSCULAR HEMOGLOBIN 32.7 pg (27.0-31.0); MEAN CORPUSCULAR HGB CONC 34.9 g/dL (32.0-36.0); MEAN CORPUSCULAR VOLUME 93.6 fL (80.0-94.0); MEAN PLATELET VOLUME 11.4 fL (7.4-11.4); MONOCYTES # (AUTO) 0.7 10^3/uL (0.0-1.0); MONOCYTES % (AUTO) 8.8 %; NEUTROPHILS % (AUTO) 54.3 %; PLT - PLATELET COUNT 178 10^3/uL (130-450); RED BLOOD COUNT 4.53 10^6/uL (4.70-6.10); RED CELL DISTRIBUTION WIDTH 12.3 % (12.0-15.0); WHITE BLOOD COUNT 7.4 x10^3/uL (4.8-10.8)
== END 2023-10-07 15:01 | disposition home or self-care (01) ==
LOC: LAB.S 15:00
PROVIDERS: ATTEND Registered Nurse
DX: R05.1 Acute cough (principal); R06.09 Other forms of dyspnea
CPT/HCPCS: 36415; 80053; 85025; 85651; 86140

== ENCOUNTER 2024-03-27 11:18 | Emergency (ER) | payer MEDICARE, OTHER ==
[2024-03-27 11:41] VITALS: BP 143/78; O2SAT 97
[2024-03-27 11:47] LABS: BILIRUBIN,URINE NEGATIVE (NEGATIVE); GLUCOSE, URINE (UA) NEGATIVE (NEGATIVE); KETONES,URINE (UA) NEGATIVE (NEGATIVE); LEUKOCYTE ESTERASE, URINE NEGATIVE (NEGATIVE); NITRITE,URINE NEGATIVE (NEGATIVE); OCCULT BLOOD,URINE MODERATE (NEGATIVE); PH,URINE 7.5 PH (5.0-7.5); PROTEIN,URINE NEGATIVE (NEGATIVE); UROBILINOGEN,URINE 0.2 (NORMAL) E.U./dL (NORMAL)
[2024-03-27 11:49] LABS: CLARITY,URINE HAZY (CLEAR)
[2024-03-27 12:22] LABS: BACTERIA,URINE Rare /HPF (None Seen); RBC,URINE TNTC /HPF (0-5); SQUAMOUS EPITHELIAL CELL,UR RARE Squamous (<= Few); WBC,URINE 0-3 /HPF (0-3)
--- NOTE | 2024-03-27 12:41 | ED Physician Documentation ---
PD HPI MALE - Stated complaint Stated Complaint: BLOOD IN URINE - Chief complaint Chief Complaint: Abd Pain - History obtained from History obtained from: Patient, Family - History of Present Illness Timing - onset: Today Pain level max: 1 Pain level now: 1 Associated symptoms: Dysuria, Urinary frequency, Hematuria. 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 He states last time this happened he had a UTI. Has a history of enlarged prostate, concern for potential prostate cancer. Had a pelvic MRI about 5 months ago that did not show any evidence of metastases or spread outside of the prostate capsule. [facility]rologist [facility]. No fevers. No chills. Has some mild burning with urination. Review of Systems Constitutional: denies: Fever, Chills Respiratory: denies: Cough GI: denies: Abdominal Pain, Vomiting, Diarrhea PD PAST MEDICAL HISTORY - Past Medical History Cardiovascular: Atrial fibrillation Endocrine/Autoimmune: None : None - Past Surgical History Past Surgical History: No - Present Medications Home Medications: Ambulatory Orders Medication Instructions Recorded Confirmed Cefpodoxime Proxetil [Vantin] 100 mg PO Q12H #14 tablet 03/27/24 - Allergies Allergies/Adverse Reactions: Allergies Allergy/AdvReac Type Severity Reaction Status Date / Time aspirin AdvReac Unknown Verified 03/27/24 11:35 NSAIDS (Non-Steroidal AdvReac Unknown Verified 03/27/24 11:35 Anti-Inflamma - Social History Does the pt smoke?: No Smoking Status: Never smoker Does the pt drink ETOH?: Yes Does the pt have substance abuse?: No - Immunizations Immunizations: TDAP >10years/unknown PD ED PE NORMAL - Vitals Vital signs reviewed: Yes - General General: Alert and oriented X 3, No acute distress, Well developed/nourished - HEENT HEENT: Moist mucous membranes - Respiratory Respiratory: No respiratory distress - Abdomen Abdomen: Soft, Non tender, Non distended - Back Back: No CVA TTP, No spinal TTP - Derm Derm: Warm and dry - Extremities Extremities: No edema - Neuro Neuro: Alert and oriented X 3 - Psych Psych: Normal mood, Normal affect Results - Vitals Vitals: Vital Signs - 24 hr 03/27/24 11:35 Temperature 36.8 C Heart Rate 70 Respiratory 18 Rate Blood Pressure 143/78 H O2 Saturation 97 Oxygen O2 Source Room air - Labs Labs: Laboratory Tests 03/27/24 11:21 Urine Color YELLOW Urine Clarity HAZY Urine pH 7.5 Ur Specific [place] 1.010 Urine Protein NEGATIVE Urine Glucose (UA) NEGATIVE Urine Ketones NEGATIVE Urine Occult Blood MODERATE H Urine Nitrite NEGATIVE Urine Bilirubin NEGATIVE Urine Urobilinogen 0.2 (NORMAL) Ur Leukocyte Esterase NEGATIVE Urine RBC TNTC H Urine WBC 0-3 Ur Squamous Epith Cells RARE Squamous Urine Bacteria Rare Ur Microscopic Review INDICATED Urine Culture Comments NOT INDICATED PD Medical Decision Making - ED course Complexity details: reviewed results, considered differential, d/w patient, d/w family ED course: 73-year-old male with 1 episode of hematuria. Does have some bacteria in his urine does have some dysuria, will treat with antibiotics. We did discuss potentially doing lab work and CT scan to exclude other causes but he does have a urologist and is comfortable following up with his urologist. Recommend that he have a cystoscopy if he fails to improve as expected. Patient does have a known issue with his prostate that he is following up with urology for. Had a pelvic MRI about 5 months ago. Patient counseled regarding signs and symptoms for which I believe and urgent re-evaluation would be necessary. Patient with good understanding of and agreement to plan and is comfortable going home at this time This document was made in part using voice recognition software. While efforts are made to proofread this document, sound alike and grammatical errors may occur. Departure - Departure Disposition: 01 Home, Self Care Clinical Impression: Hematuria Qualifiers: Hematuria type: gross Qualified Code(s): R31.0 - Gross hematuria Condition: Good Instructions: ED Hematuria Follow-Up: FOX SHEIKH MD [Primary Care Provider] - Within 1 week Prescriptions: Cefpodoxime Proxetil [Vantin] 100 mg PO Q12H #14 tablet Comments: Your prescriptions were sent to [facility] in [place]. Please follow-up with your doctor for further care. Please return if you worsen. As we discussed if this does not clear, you will need further workup including likely cystoscopy. Forms: PCP List Discharge Date/Time: 03/27/24 12:51
== END 2024-03-27 12:51 | disposition home or self-care (01) ==
LOC: ED 11:18
DX: R31.0 Gross hematuria (principal); R82.71 Bacteriuria; I48.91 Unspecified atrial fibrillation
CPT/HCPCS: 81001; 81003; 87086; 99282; 99283